=== PATIENT | male | born 1970 | race Caucasian/White ===

== ENCOUNTER 2020-10-17 04:45 | Emergency (ER) | payer OTHER ==
[~2020-10-17] VITALS: Ht 182.9 cm; Wt 81.7 kg
[2020-10-17] MEDS ORDERED: TORADOL 10 MG T10 MG PO (05:22)
[2020-10-17] MEDS ORDERED: PROMETHAZINE-C473 ML PO (05:22)
[2020-10-17 07:05] VITALS: BP 123/72
--- NOTE | 2020-10-17 10:19 | EKG ---
[place] [address] ELECTROCARDIOGRAM REPORT Name: SOFIE GHOSH Room: [facility]#: [id number] Admission: 10/17/20 Attend Phys: Discharge: 10/17/20 Date of : 72 Date of Service: 10/17/20 0500 Report #: [id number] THIS REPORT FOR: //name// [facility] ED Test Date: 2020-10-17 Test Time: 05:00:48 Pat Name: SOFIE HENDRICKSONSIOMARA Department: Room: Gender: [employer]ch[employer]: [place] : 1970 Requested By: Crystal Miguel Order Number: [id number] MD: John Suero Measurements Intervals [place] Rate: 83 P: 73 IN: 143 QRS: 57 QRSD: 89 T: 33 QT: 353 QTc: 415 Interpretive Statements Sinus rhythm Baseline wander in lead(s) III,V2,V3,V4,V5,V6 No previous ECG available for comparison Electronically Signed On 10-17-2020 10:19:41 CDT by John Suero [email or web address] <ELECTRONICALLY SIGNED> By: John Suero MD, [facility] 10/17/20 1019 0500 0500 John Suero MD, [facility] /EPI
== END 2020-10-17 07:05 | disposition home or self-care (01) ==
LOC: M.ERS 04:45
DX: U07.1 COVID-19 (principal); J12.82 Pneumonia due to coronavirus disease 2019; Z88.0 Allergy status to penicillin